=== PATIENT | male | born 1955 | race Caucasian/White ===

== ENCOUNTER 2022-07-28 13:44 | Outpatient (CLI) | payer MEDICARE ==
[~2022-07-28 13:44] MED LIST: Magnevist 469MG/ML 20 ML VIAL ONE
== END 2022-07-28 13:45 | disposition home or self-care (01) ==
LOC: TBSIIMAG 13:44
PROVIDERS: ATTEND Radiology Radiation Oncology
DX: C61 Malignant neoplasm of prostate (principal)
CPT/HCPCS: 72197; 82565